=== PATIENT | female | born 1930 | race Caucasian/White ===

== ENCOUNTER → 2017-01-18 12:51 | Outpatient (CLI) | payer MEDICARE ==
[2016-05-18 08:55] VITALS: BMI 17.8
[~2017-01-18 12:51] MED LIST: BAYER CHEWABLE81 MG PO; CRESTOR10 MG PO; GLIMEPIRIDE4 MG PO; GLUCOPHAGE500 MG PO; PLAVIX75 MG PO; ZESTORETIC 20/21 TAB PO
== END | disposition home or self-care (01) ==
LOC: D.US 12:51
DX: M79.604 Pain in right leg (principal); R60.0 Localized edema